=== PATIENT | male | born 1980 | race Caucasian/White ===

== ENCOUNTER 2017-07-24 00:16 | Emergency (ER) | payer SELFPAY ==
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
[2017-07-24] MEDS: Diph,Pert(Acell),Tet Vac 0.5 ML SYR IM ONE (02:01)
[2017-07-24] MEDS: CEPHALEXIN 500 MG CAPSULE PO STA (02:49)
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
== END 2017-07-24 02:49 | disposition left against medical advice (07) ==
LOC: ER 00:16 → EDBD 00:16 → ER 02:49
DX: S02.82XA Fracture of other specified skull and facial bones, left side, initial encounter for closed fracture (principal); S06.9X0A Unspecified intracranial injury without loss of consciousness, initial encounter; S02.2XXA Fracture of nasal bones, initial encounter for closed fracture; F10.129 Alcohol abuse with intoxication, unspecified; Y90.8 Blood alcohol level of 240 mg/100 ml or more; Y04.0XXA Assault by unarmed brawl or fight, initial encounter
CPT/HCPCS: 99283; 96372; 99284; 72125; 70450; 70486; G0480; 80320; 90715

== ENCOUNTER 2017-10-07 18:50 | Emergency (ER) | payer MEDICAID ==
[2017-10-07] MEDS ORDERED: PREDNISONE 20 MG TAB PO ONE (18:59)
--- NOTE | 2017-10-07 19:01 | Emergency Department Record ---
History of Present Illness - General Chief complaint: Hives Stated complaint: HIVES Time Seen by Provider: 10/07/17 18:59 Source: Patient Mode of Arrival: Ambulatory Limitations: No limitations - History of Present Illness Initial comments: 37 yo male presents to ED for evaluation of "hives" for the past 3 days. Patient reports that his currently residence is infested with mites from a household animal, and that he has been using hot water and bleach to try and eliminate itching symptoms. Patient denies throat swelling, wheezing, or difficulty in breathing symptoms. Patient denies any new foods or medications other than the home remedies used for his itching symptoms. Patient denies health problems at his baseline. MD complaint: Rash Onset/Timin -: Days(s) Location: Generalized Severity: Mild Quality: Other (itching) Consistency: Intermittent Improves with: None Worsens with: None Context: None Associated symptoms: Denies other symptoms Treatments Prior to Arrival: Other - Related Data Previous Rx's Medication Instructions Recorded Permethrin [Nix] 1 apply TOP ASDIR #59 ml 10/07/17 Prednisone [Prednisone 20Mg] 20 mg PO TID #12 tab 10/07/17 Allergies Allergy/AdvReac Type Severity Reaction Status Date / Time No Known Drug Allergies Allergy Verified 10/07/17 18:54 Review of Systems Constitutional: Denies: Chills, Fever, Malaise, Night sweats Eyes: Denies: Eye discharge, Eye pain ENT: Denies: Congestion, Ear pain, Epistaxis Respiratory: Denies: Cough, Dyspnea Cardiovascular: Denies: Chest pain, Dyspnea on exertion Endocrine: Denies: Fatigue, Heat or cold intolerance Gastrointestinal: Denies: Abdominal pain, Nausea, Vomiting Genitourinary: Denies: Incontinence, Retention Musculoskeletal: Denies: Arthralgia, Back pain, Gout, Joint swelling Skin: Reports: Rash. Denies: Bruising, Change in color, Change in hair/nails Neurological: Denies: Abnormal gait, Confusion, Headache, Tingling Psychiatric: Denies: Anxiety Hematological/Lymphatic: Denies: Anemia, Blood Clots Past Medical History - SOCIAL HISTORY Smoking Status: Current every day smoker Alcohol Use Comment: "every other month drinks a lot" Drug Use Detail:: Marijuana - RESPIRATORY Hx Respiratory Disorders: No - CARDIOVASCULAR Hx Cardio Disorders: No - NEURO Hx Neuro Disorders: No - GI Hx GI Disorders: No - Hx Genitourinary Disorders: No - ENDOCRINE Hx Endocrine Disorders: No - MUSCULOSKELETAL Hx Musculoskeletal Disorders: No - PSYCH Hx Psych Problems: No - HEMATOLOGY/ONCOLOGY Hx Hematology/Oncology Disorders: No Family Medical History Hx Cancer: Grandparents Physical Exam - General General Appearance: Alert, Oriented x3, Cooperative, Anxious Limitations: No limitations - Head Head exam: Atraumatic, Normocephalic, Normal inspection Head exam detail: negative: Abrasion, Contusion, Hester's sign, General tenderness, Hematoma, Laceration - Eye Eye exam: Normal appearance. negative: Conjunctival injection, Periorbital swelling, Periorbital tenderness, Scleral icterus - ENT Ear exam: negative: Auricular hematoma, Auricular trauma Nasal Exam: negative: Active bleeding, Discharge, Dried blood, Foreign body Mouth exam: negative: Drooling, Laceration, Tongue elevation - Neck Neck exam: Normal inspection. negative: Meningismus, Tenderness - Respiratory Respiratory exam: Normal lung sounds bilaterally. negative: Respiratory distress, Rhonchi, Stridor, Wheezes - Cardiovascular Cardiovascular Exam: Regular rate, Normal rhythm, Normal heart sounds - GI/Abdominal GI/Abdominal exam: Soft. negative: Rebound, Rigid, Tenderness - Rectal Rectal exam: Deferred - exam: Deferred - Extremities Extremities exam: Other (Large hive to the posterior left thigh, otherwise normal). negative: Calf tenderness, Pedal edema, Tenderness - Back Back exam: Denies: CVA tenderness (R), CVA tenderness (L), Rash noted - Neurological Neurological exam: Alert, Normal gait, Oriented X3 - Psychiatric Psychiatric exam: Anxious - Skin Skin exam: Erythema, Urticaria Type of lesion: Rash Distribution of rash: RLE Description of rash: Urticarial Course - Reevaluation(s) Reevaluation #1: 10/07/17 19:06 Symptoms appear c/w urticaria, will treat with Prednisone as directed. Patient is also requesting treatment for possible mites, will prescribe Permethrin as directed. Patient was also counseled to use Benadryl as directed and to avoid further home treatments for his itching symptoms as these may be aggravating his hive symptoms. Patient verbalizes understanding of all instructions, is well appearing without evidence for systemic allergic reaction, and appears stable for discharge at this time. Disposition Disposition: Discharge Clinical Impression: Urticaria Disposition: Home, Self-Care Condition: (2) Stable Instructions: Urticaria (ED) Additional Instructions: Return to ED if your symptoms worsen or if you have any concerns. Prednisone and Permetherin as directed. Follow-up with your family doctor in 3-5 days as directed. Prescriptions: Permethrin [Nix] 1 apply TOP ASDIR #59 ml Prednisone [Prednisone 20Mg] 20 mg PO TID #12 tab Forms: Patient Portal Access Time of Disposition: 19:01 Quality - Quality Measures Quality Measures: N/A - Blood Pressure Screening Does Patient Have Any of the Following: No Blood Pressure Classification: Hypertensive Reading Systolic Measurement: 136 Diastolic Measurement: 93 Screening for High Blood Pressure: < First Hypertensive BP, F/U Documented > [ G8950] First Hypertensive Follow-up Interventions: Referral to alternative/primary care provider.
== END 2017-10-07 19:12 | disposition home or self-care (01) ==
LOC: ER 18:50
DX: L50.8 Other urticaria (principal)
CPT/HCPCS: 99282; J7512